=== PATIENT | male | born 1940 | race Caucasian/White ===

== ENCOUNTER 2017-04-08 11:28 | Emergency (ER) | payer BC ==
[~2017-04-08] VITALS: Ht 175.3 cm; Wt 68.0 kg
[~2017-04-08 11:28] MED LIST: ASPIR 8181 MG PO
--- NOTE | 2017-04-10 17:15 | EKG ---
[facility] [address] [place], [place] [address] Signed Sinus bradycardia Septal infarct , age undetermined Abnormal ECG No previous ECGs available Confirmed by MARK QUEVEDO MD ([id number]) on 04/10/2017 5:14:59 PM Electronically Signed By: MARK QUEVEDO MD 04/10/17 1715 PATIENT NAME: ROMAN PAVON Electrocardiogram DATE OF : 44 PHYSICIAN: MARK QUEVEDO MD REPORT #: [id number] REPORT IS CONFIDENTIAL AND NOT TO BE RELEASED WITHOUT AUTHORIZATION
== END 2017-04-08 13:40 | disposition home or self-care (01) ==
LOC: ED 11:28
DX: E86.0 Dehydration (principal); Z79.82 Long term (current) use of aspirin
CPT/HCPCS: 80053; 84484; 85025; 93005; 93010; 99284

== ENCOUNTER 2020-10-03 06:30 | Day surgery (SDC) | payer BC ==
[~2020-10-03] VITALS: Ht 175.3 cm; Wt 76.6 kg
[~2020-10-03 06:30] MED LIST changes: +HYDROCHLOROTH12.5 M1 PO; +PRINIVIL20 MG PO
--- NOTE | 2020-10-03 07:59 | NUR ---
10/03/20 0759 Joie Kerr 0754 PATIENT ARRIVES TO PACU SLEEPING. OPENS EYE OFF/ON, BUT VERY DROWSY. RESP EVEN AND UNLABORED, NC AT 3 LITERS. PATIENT BP IS LOW ON ARRIVAL, DR GRISSOM AWARE, 2ND LITER LR ORDERED. PATIENT FOLLOWS COMMANDS TO REPOSITION SELF TO BACK. BP REPEATED, CONTINUES TO BE LOW BUT IMPROVED.
--- NOTE | 2020-10-03 09:34 | NUR ---
PT IS ALERT, ORIENTED AND SUPPORTED BY HIS FANNY. PT'S HAD PREVIOUS SCOPES, GLAD PREP IS OVER. ALL QUESTIONS ASKED ANSWERED. FANNY HAS A DR APPT @ 1030 AND IS HOPING SHE CAN MAKE THAT APPT. SHARED WITH PACU STAFF, THEY WILL WORK TO MAKE IT HAPPEN. PT REQUESTED PRAYER, WILL FOLLOW
--- NOTE | 2020-10-03 11:09 | OR ---
[facility] [address] [place], [place] [address] Signed DATE OF OPERATION: 10/03/2020 SURGEON: Duglas Grissom MD PREOPERATIVE DIAGNOSES: 1. Personal history of colonic polyps in 2015 at age 75. 2. Daughter with colon cancer in her 40s. POSTOPERATIVE DIAGNOSES: 1. A 4 mm polyp at 90 cm. 2. Minimal internal hemorrhoids. PROCEDURE: Colonoscopy with hot biopsy. ESTIMATED BLOOD LOSS: None. INDICATIONS: Roman is a 80-year-old gentleman asked to see me for a followup colonoscopy. We know his daughter developed colon cancer in her 40s. She continues to do well. Roman had an adenomatous polyp removed at age 75 back in 2014. In the meantime, he continues to do well. He has no lower GI complaints. He had a tiny left prostate nodule on exam and he had that again today. It does not seem to have changed. He always comes with his . He really has no lower GI complaints. Overall, he still has good functional status. I gave Roman and his a pamphlet on colonoscopy. They remember that quite well. They remember our bowel prep from 5 years ago. We had gone through it line by line. He recalls the need for IV conscious sedation. He expressed understanding and wished to proceed. PROCEDURE NOTE: Roman was taken into our endoscopy suite and placed in the left lateral decubitus position. He was given 100 mcg of fentanyl and 3 mg of Versed to cover the case. A digital rectal exam was performed. His prostate is moderately enlarged, and again a little bit of a nodule on the left that does not seem to have changed. The adult colonoscope had been introduced and advanced all around into the cecum under direct visualization of camera. It took some abdominal compression in order to advance the scope. His prep was quite excellent. We could easily see the appendiceal orifice and the ileocecal valve. The scope was slowly withdrawn. We found a small 4 mm polyp back at 90 cm. This was easily removed with the help of hot biopsy forceps. There was no Electronically Signed By: DUGLAS GRISSOM MD 10/03/20 1109 PATIENT NAME: ROMAN PAVON OPERATIVE REPORT DATE OF : 44 REPORT #: [id number] PHYSICIAN: DUGLAS GRISSOM MD PCP: BRIANA JAIN MD REPORT IS CONFIDENTIAL AND NOT TO BE RELEASED WITHOUT AUTHORIZATION [facility] [address] [place], [place] [address] Signed diverticulosis. The rectum was unremarkable. Upon retroflexion of scope, he has very minimal internal hemorrhoid tissue. After this, the gas was suctioned out and the colonoscope removed. Roman tolerated the procedure quite well. RECOMMENDATIONS: I will see Roman back in my office in 7 to 14 days to review his results. MD JOSÉ Cohen/KAVINL /[id number] cc: MD Duglas Bryant MD Copies: BRIANA JAIN MD, ANDREW L MD ~ Electronically Signed By: DUGLAS GRISSOM MD 10/03/20 1109 PATIENT NAME: ROMAN PAVON ERIC OPERATIVE REPORT DATE OF : 44 REPORT #: [id number] PHYSICIAN: DUGLAS GRISSOM MD PCP: BRIANA JAIN MD REPORT IS CONFIDENTIAL AND NOT TO BE RELEASED WITHOUT AUTHORIZATION
--- NOTE | 2020-10-04 11:23 | PATH ---
[facility] [address] [place], [place] [address] Signed SPECIMEN(S): A COLON POLYP AT 90 CM SPECIMEN SOURCE: A. COLON POLYP AT 90 CM CLINICAL HISTORY: Family hx and persona hx of colon polyps. Daughter hx of colon CA. MICROSCOPIC DESCRIPTION: Histologic sections of all submitted blocks are examined by light microscopy. These findings, together with the gross examination, support the pathologic diagnosis. FINAL PATHOLOGIC DIAGNOSIS: Colon, polyp at 90 cm, polypectomy: - Tubular adenoma. - Negative for high-grade dysplasia or malignancy. NAL:cml:C2NR GROSS DESCRIPTION: The specimen, labeled "Hewes, colon polyp at 90 cm," is received in formalin and consists of one fair soft tissue fragment(s) that measure 0.1 cm in greatest dimension. The specimen is entirely submitted in cassette (A1). AK (under the direct supervision of a pathologist) The Gross Description was prepared using a voice recognition system. The report was reviewed for accuracy; however, sound-alike word errors, addition and/or deletions may occur. If there is any question about this report, please contact Client Services. PERFORMING LABORATORY: The technical component was performed by [employer], [address] [place] [id number] (Clothing Sorter: Janice Arnold MD; CLIA# [id number]). [facility], [address] [address] (CLIA# [id number]). Diagnostician: Kristi Chang MD Pathologist Electronically Signed 10/04/2020 PATIENT NAME: ROMAN PAVON PATHOLOGY DATE OF : 44 REPORT #: [id number] PHYSICIAN: [facility] PCP: BRIANA JIAN MD REPORT IS CONFIDENTIAL AND NOT TO BE RELEASED WITHOUT AUTHORIZATION [address] [place], [place] [address] Signed Copies: ~ PATIENT NAME: ROMAN PAVON PATHOLOGY DATE OF : 44 REPORT #: [id number] PHYSICIAN: [facility] PCP: BRIANA JAIN MD REPORT IS CONFIDENTIAL AND NOT TO BE RELEASED WITHOUT AUTHORIZATION
== END 2020-10-03 08:30 | disposition home or self-care (01) ==
LOC: DS 06:30 → OPS 06:30 → DS 06:45 → OPS 08:30
PROVIDERS: ATTEND Colon & Rectal Surgery
PROC: 0DBE8ZX Excision of Large Intestine, Via Natural or Artificial Opening Endoscopic, Diagnostic (ICD-10-PCS; principal; 2020-10-03 06:45)
DX: D12.6 Benign neoplasm of colon, unspecified (principal); K64.8 Other hemorrhoids; I10 Essential (primary) hypertension; H91.90 Unspecified hearing loss, unspecified ear; R97.20 Elevated prostate specific antigen [PSA]; Z80.0 Family history of malignant neoplasm of digestive organs; Z86.010 Personal history of colon polyps; Z97.4 Presence of external hearing-aid
CPT/HCPCS: J2250; J3010; J7121